=== PATIENT | male | born 2000 | race Caucasian/White ===

== ENCOUNTER 2024-02-03 22:58 | Emergency (ER) | payer BC ==
[~2024-02-03] VITALS: Ht 180.3 cm; Wt 74.8 kg
[2024-02-03 23:03] VITALS: BP_SYST 128; PULSE 70; RESP 16; TEMP 99.1; O2SAT 100
[2024-02-03] MEDS: DIPHENHYDRAMINE HCL 50 MG CAPSULE PO ONE (23:26)
[2024-02-03] MEDS: DEXAMETHASONE SOD PHOSPHATE 10 MG/ML VIAL IM ONE (23:26)
[2024-02-04] MEDS: DIPHENHYDRAMINE INJ 50 MG/ML VIAL IVP ONE (02:10)
[2024-02-04] MEDS: methylPREDNISolone SOD SUCC/PF 62.5 MG/ML VIAL IVP ONE (02:11)
[2024-02-04 02:18] LABS: BASOPHILS % (AUTO) 0.4 % (0.0-2.0); EOSINOPHILS % (AUTO) 0.2 % (0.0-4.0); HEMOGLOBIN 14.5 g/dL (14.0-18.0); LYMPHOCYTES # (AUTO) 1.2 K/uL (1.0-5.5); LYMPHOCYTES % (AUTO) 11.7 % (20.5-51.5); MEAN CORPUSCULAR HEMOGLOBIN 29 pg (27-31); MEAN CORPUSCULAR HGB CONC 34 % (32-36); MEAN CORPUSCULAR VOLUME 86 fL (79.0-98.0); MONOCYTES # (AUTO) 0.1 K/uL (0.0-1.0); MONOCYTES % (AUTO) 1.4 % (1.7-9.3); NEUTROPHILS # (AUTO) 8.5 K/uL (1.8-7.7); NEUTROPHILS % (AUTO) 86.3 % (40.0-70.0); PLATELET COUNT (AUTO) 243 K/uL (130-430); RED BLOOD CELL COUNT(AUTO) 5.01 MIL/uL (4.2-6.2); RED CELL DISTRIBUTION WIDTH 13.7 % (9.0-15.0); WHITE BLOOD COUNT (AUTO) 9.9 K/uL (4.8-10.8)
[2024-02-04 02:33] LABS: CALCIUM 9.7 mg/dL (8.4-11.0); CREATININE 0.98 mg/dL (0.55-1.30); POTASSIUM 4.7 mmol/L (3.5-5.1)
[2024-02-04 03:25] LABS: MONOTEST NEGATIVE (NEGATIVE)
[2024-02-04 03:35] LABS: STREPTOCOCCUS A SCREEN (RAPID) NEGATIVE (NEGATIVE)
[2024-02-04] MEDS ORDERED: PRED20TA PO (03:40)
[2024-02-04] MEDS ORDERED: BEN50 PO (03:40)
[2024-02-04] MEDS ORDERED: EPINEPHRINE HCL/PF 1 MG/ML AMP ONE (04:39)
[2024-02-04] MEDS: EPINEPHrine HCL 1 MG/ML VIAL SUBCUT ONE (04:44)
[2024-02-04 05:45] VITALS: BP_SYST 111; PULSE 67; RESP 18; TEMP 97.8; O2SAT 98
== END 2024-02-04 05:45 | disposition home or self-care (01) ==
LOC: SED 22:58
DX: T78.49XA Other allergy, initial encounter (principal); H57.89 Other specified disorders of eye and adnexa; J39.2 Other diseases of pharynx; R13.10 Dysphagia, unspecified; X58.XXXA Exposure to other specified factors, initial encounter
CPT/HCPCS: 99285; 80048; 85025; 86308; 86403; 36415; 96372 ×2; 87081; 96374; 96375; Q0163; J1100; J1200; J0171; 99284; J2930